=== PATIENT | male | born 1980 | race Caucasian/White ===

== ENCOUNTER 2022-02-04 14:54 | Inpatient (IN) | payer OTHER ==
[~2022-02-04] VITALS: Ht 180.3 cm; Wt 114.0 kg
--- NOTE | 2022-02-04 14:54 | NUR ---
PT AMBUALTES TO TREATMENT ROOM FOR TRIAGE
--- NOTE | 2022-02-04 15:30 | NUR ---
Reassessment of patient completed. No distress noted.
[2022-02-04 16:02] LABS: HEMOGLOBIN 16.1 g/dl (14.0-18.0); IMMATURE GRANULOCYTES 0.1 % (0.0-5.0); MEAN CELL VOLUME 88.2 fL CALC (80.0-100.0); MEAN CORPUSCULAR HGB 28.4 pG CALC (26.0-32.0); MEAN CORPUSCULAR HGB CONC 32.2 g/dL CAL (32.0-36.0); NEUT# 5.37 thou/uL (1.82-7.42); RED BLOOD COUNT 5.67 mill/uL (4.70-6.10); RED CELL DISTRI WIDTH 14.2 % (11.5-15.5)
[2022-02-04 16:14] LABS: ALBUMIN 4.5 g/dL (3.2-5.0); ALKALINE PHOSPHATASE 74 u/l (38-126); ANION GAP 17 (6-22 (CALC)); BILIRUBIN, TOTAL 0.4 mg/dL (0.0-1.4); CARBON DIOXIDE 22 mmol/l (22-30); CHLORIDE 100 mmol/l (95-108); GFR FOR AFR.AMER. 9 ML/MIN (>=60 (CALC)); GFR OTHER RACES 7 ML/MIN (>=60 (CALC)); MAGNESIUM 2.7 mg/dL (1.6-2.3); POTASSIUM 4.2 mmol/l (3.5-5.1); SGOT/AST 17 u/l (17-59); SODIUM 135 mmol/l (137-146); TOTAL PROTEIN 8.3 g/dL (6.3-8.2)
[2022-02-04 16:25] LABS: MYOGLOBIN 75 ng/mL (0 - 121)
[2022-02-04 16:27] LABS: BUN 119 mg/dL (9-20); BUN/CREATININE RATIO 14 (12-20 (CALC)); CREATININE 8.4 mg/dL (0.7-1.3)
--- NOTE | 2022-02-04 16:30 | NUR ---
Reassessment of patient completed. No distress noted.
[2022-02-04 16:35] LABS: INTERNATIONAL NORMALIZED RATIO 0.9 RATIO (0.7-1.3); PROTHROMBIN TIME 9.7 SECONDS (9.0-12.5)
--- NOTE | 2022-02-04 17:30 | NUR ---
Reassessment of patient completed. No distress noted.
[2022-02-04] MEDS ORDERED: CARVEDILOL6.25 MG PO (18:25)
[2022-02-04] MEDS ORDERED: ACETAMINOP160 MG/5 M PO (18:26)
[2022-02-04] MEDS ORDERED: WELLBUTRIN XL300 MG PO (18:26)
[2022-02-04] MEDS ORDERED: TRAZODONE50 MG PO (18:27)
[2022-02-04] MEDS ORDERED: LIPITOR40 M1 PO (18:27)
--- NOTE | 2022-02-04 18:31 | NUR ---
REPORT CALLED TO ANGEL BATEMAN AT THIS TIME
--- NOTE | 2022-02-04 19:45 | NUR ---
ARRIVED TO ROOM 260 FROM ER ACCOMPAIED BY NURSE ON TELEMENTRY E01 DENIES PAIN OR DISCOMFORT. ORIENTED TO ROOM. AMBULATES TO BATHROOM WITHOUT ASSISTANCE NO SOB WITH ACTIVITY NOTED.
--- NOTE | 2022-02-04 19:45 | NUR ---
PT TRANSFERRED TO MED SURG.
[2022-02-04 19:49] VITALS: BP 91/41
--- NOTE | 2022-02-04 22:20 | NUR ---
VOIDED 400 ML CLEAR YELLOW URINE. SPECIMEN COLLECTED ORDERED TO BE SENT TO LAB FOR ANALYSIS. PATIENT LYING IN BED WITHOUT DISTRESS. RESPIRATIONS EVEN AND UNLABORED.
[2022-02-04 23:41] LABS: URINE BILIRUBIN - DIPSTICK NEGATIVE (NEGATIVE); URINE BLOOD DIPSTICK NEGATIVE (NEGATIVE); URINE COLOR YELLOW; URINE GLUCOSE - DIPSTICK NEGATIVE (NEGATIVE); URINE KETONE NEGATIVE (NEGATIVE); URINE LEUK ESTERASE NEGATIVE (NEGATIVE); URINE PROTEIN - DIPSTICK NEGATIVE (NEG-TRACE); URINE SPECIFIC GRAVITY 1.015; URINE UROBILINOGEN - DIPSTICK 0.2 E.U./dL (0.2)
[2022-02-04 23:46] LABS: URINE NITRITE - DIPSTICK NEGATIVE (Negative)
--- NOTE | 2022-02-05 02:59 | NUR ---
RESTING QUIETLY IN BED NO ACUTE DISTRESS NOTED. POSTURE RELAXED RESPIRATIONS EVEN AND UNLABORED.
[2022-02-05 04:34] VITALS: BP 133/58
[2022-02-05 06:00] LABS: ALBUMIN 3.6 g/dL (3.2-5.0); POTASSIUM 4.3 mmol/l (3.5-5.1)
[2022-02-05 06:45] VITALS: BP 98/59
--- NOTE | 2022-02-05 08:00 | NUR ---
GOT REPORT FROM PACKAGING SUPERVISOR NURSE. PATIENT ASSESSED. AOX4. NO COMPLAINTS AT THIS TIME. NO CONCERNS OR QUESTIONS AT THIS TIME. CALL LIGHT AND BEDSIDE TABLE WITH IN REACH AND ADVISED PATIENT TO CALL IF HE NEEDED ANYTHING. PATIENT VEBERALIZED UNDERSTANDING.
[2022-02-05] MEDS ORDERED: TRAZODONE100 MG PO (09:30)
[2022-02-05] MEDS ORDERED: LISINOPRIL40 MG PO (10:56)
[2022-02-05 15:50] VITALS: BP 121/62
[2022-02-05 18:57] VITALS: BP 137/67
--- NOTE | 2022-02-05 19:30 | NUR ---
PATIENT LYING IN BED RELAXED POSTURE ALERT AND ORIENTED X3 WATCHING TV. DENIES PAIN OR DISCOMFORT RESPIRATIONS EVEN AND UNLABORED. WARM BLANKET PROVIDED FOR COMFORT. PLAN OF CARE REVIEWED WITH PATIENT.
--- NOTE | 2022-02-06 | NUR ---
RESTING QUIETLY IN BED LEFT-SIDE POSITION. EYES CLOSE RESPIRATIONS EVEN AND UNLABOREDITAL SIGNS STABLE WILL CONTINUE TO MONITOR
[2022-02-06 00:31] VITALS: BP 137/55
[2022-02-06 03:51] VITALS: BP 133/56
--- NOTE | 2022-02-06 04:11 | NUR ---
LYING IN BED WITH EYES CLOSED RELAXED POSTURE NO ACUTE DISTRESS NOTED.
[2022-02-06 05:55] LABS: ANION GAP 10 (6-22 (CALC)); BUN 50 mg/dL (9-20); BUN/CREATININE RATIO 36 (12-20 (CALC)); CARBON DIOXIDE 26 mmol/l (22-30); CHLORIDE 107 mmol/l (95-108); CREATININE 1.4 mg/dL (0.7-1.3); GFR FOR AFR.AMER. > 60 ML/MIN (>=60 (CALC)); GFR OTHER RACES 56 ML/MIN (>=60 (CALC)); MAGNESIUM 1.5 mg/dL (1.6-2.3); POTASSIUM 4.3 mmol/l (3.5-5.1); SODIUM 139 mmol/l (137-146)
[2022-02-06 06:38] VITALS: BP 127/50
--- NOTE | 2022-02-06 07:33 | NUR ---
PT RESTING IN SEMI FOWLERS POSITION. RESPIRATIONS EVEN AND UNLABORED. LUNG SOUNDS CLEAR. HEART RHYTHM NORMAL WITH TELE IN PLACE. BOWEL SOUNDS ACTIVE.#20G LAC INFUSING WITH IVF PER ORDER, SITE PATENT. SKIN INTACT. PT DNEIES OF ANY ADDITIONAL NEEDS AT THIS TIME. ALL [facility]AF[facility] PRECAUTIONS ARE IN PLACE WITH CALL LIGHT IN REACH
--- NOTE | 2022-02-06 10:03 | NUR ---
patient on dialysis treatment. Accessed fistula with 15 g needles x 1 attempt, patient tolerated without incident. Blood lines secured and visable. B/P wnl, patient denies c/o pain or discomfort at present. Heart regular, positive pulses, cap refil prompt, no edema noted. Lungs CTA, no respiratory distress noted, respirations easy non labored, skin warm dry intact. BM yesterday normal for patient per patient. To remove 1200 mls due to patient feeling badly if too much fluid removed.. Start weight 85.8 kg. Start time 8:43 B/P 157/79 Pulse 74 Resp 18 Temp 98.1 retake. No issues noted at present
--- NOTE | 2022-02-06 11:30 | NUR ---
PT EDUCATED ON DC INSTRUCTIONS. PT VERBALIZED UNDERSTANDING. IV REMOVED WITH CATH INTACT. TELE REMOVED, ER INFORMED. TRANSPORTATION CALLED
--- NOTE | 2022-02-06 12:15 | NUR ---
Discharge instructions given. Patient verbalizes understanding of same. Discharged in stable condition via Wheelchair to Home with staff. All belongings sent with pt.
== END 2022-02-06 12:16 | disposition home or self-care (01) | DRG 684 ==
LOC: ED 14:54 → ED-I 17:35 → ED 17:54 → MS2 17:55
PROVIDERS: Nurse Practitioner; ADMIT Internal Medicine; ATTEND Internal Medicine
DX: N17.9 Acute kidney failure, unspecified (principal); E86.0 Dehydration; I95.9 Hypotension, unspecified; I11.0 Hypertensive heart disease with heart failure; I50.9 Heart failure, unspecified; E78.5 Hyperlipidemia, unspecified; F32.A Depression, unspecified; F17.210 Nicotine dependence, cigarettes, uncomplicated; Z20.822 Contact with and (suspected) exposure to COVID-19

== ENCOUNTER 2022-03-16 15:44 | Emergency (ER) | payer OTHER ==
[~2022-03-16] VITALS: Ht 180.3 cm; Wt 109.0 kg
[2022-03-16] VITALS (8 sets, daily range): BP systolic 88–109; BP diastolic 47–74
[~2022-03-16 15:44] MED LIST: ACETAMINOP160 MG/5 M PO; CARVEDILOL6.25 MG PO; LIPITOR40 M1 PO; LISINOPRIL40 MG PO; TRAZODONE100 MG PO; TRAZODONE50 MG PO; WELLBUTRIN XL300 MG PO
[2022-03-16] MEDS ORDERED: LISINOPRIL10 MG PO (16:40)
[2022-03-16] MEDS ORDERED: CARVEDILOL6.25 MG PO (16:40)
[2022-03-16 16:45] LABS: HEMATOCRIT 46.5 % (39.0-50.0); IMMATURE GRANULOCYTES 0.1 % (0.0-5.0); MEAN CELL VOLUME 88.4 fL CALC (80.0-100.0); MEAN CORPUSCULAR HGB 28.5 pG CALC (26.0-32.0); MEAN CORPUSCULAR HGB CONC 32.3 g/dL CAL (32.0-36.0); NEUT# 4.9 thou/uL (1.82-7.42); RED BLOOD COUNT 5.26 mill/uL (4.70-6.10)
[2022-03-16 17:02] LABS: ALBUMIN 4.2 g/dL (3.2-5.0); POTASSIUM 3.9 mmol/l (3.5-5.1); TOTAL PROTEIN 7.9 g/dL (6.3-8.2)
[2022-03-16 17:03] LABS: BILIRUBIN, TOTAL 0.6 mg/dL (0.0-1.4); CREATININE 4.7 mg/dL (0.7-1.3)
== END 2022-03-16 18:37 | disposition home or self-care (01) | DRG 605 ==
LOC: ED 15:44
PROVIDERS: Family Medicine
DX: S00.83XA Contusion of other part of head, initial encounter (principal); I13.0 Hypertensive heart and chronic kidney disease with heart failure and stage 1 through stage 4 chronic kidney disease, or unspecified chronic kidney disease; N18.9 Chronic kidney disease, unspecified; I50.9 Heart failure, unspecified; W19.XXXA Unspecified fall, initial encounter; Y92.009 Unspecified place in unspecified non-institutional (private) residence as the place of occurrence of the external cause

== ENCOUNTER 2023-08-10 11:47 | Emergency (ER) | payer OTHER ==
[~2023-08-10] VITALS: Ht 180.3 cm; Wt 81.6 kg
[~2023-08-10 11:47] MED LIST changes: +LISINOPRIL10 MG PO
[2023-08-10 12:13] LABS: BASO% 0.3 % (0-3); EOS% 1.8 % (0-8); HEMATOCRIT 44.3 % (39.0-50.0); IMMATURE GRANULOCYTES 0.5 % (0.0-5.0); LYMPH% 14.9 % (15-41); MEAN CELL VOLUME 90.6 fL CALC (80.0-100.0); MEAN CORPUSCULAR HGB 28.6 pG CALC (26.0-32.0); MEAN CORPUSCULAR HGB CONC 31.6 g/dL CAL (32.0-36.0); MONO% 7.3 % (2-13); NEUT# 5.91 thou/uL (1.82-7.42); NEUT% 75.2 % (42-76); RED BLOOD COUNT 4.89 mill/uL (4.70-6.10); RED CELL DISTRI WIDTH 12.8 % (11.5-15.5)
[2023-08-10 12:27] VITALS: BP 108/69
[2023-08-10 12:30] VITALS: BP 105/66
[2023-08-10 12:52] LABS: ALBUMIN 3.7 g/dL (3.2-5.0); BILIRUBIN, TOTAL 0.6 mg/dL (0.2-1.3); CREATININE 1.7 mg/dL (0.7-1.3); POTASSIUM 4.5 mmol/l (3.5-5.1); TOTAL PROTEIN 8.2 g/dL (6.3-8.2)
[2023-08-10 13:00] VITALS: BP 96/56
[2023-08-10] MEDS ORDERED: VIBRAMYCIN100 M2 PO (13:02)
[2023-08-10] MEDS ORDERED: PAXLOVID PO (13:02)
[2023-08-10] MEDS ORDERED: TAM75CAP PO (13:02)
[2023-08-10 14:09] VITALS: BP 96/56
== END 2023-08-10 14:10 | disposition home or self-care (01) | DRG 178 ==
LOC: ED 11:47
PROVIDERS: Family Medicine
DX: U07.1 COVID-19 (principal); L02.31 Cutaneous abscess of buttock; J10.1 Influenza due to other identified influenza virus with other respiratory manifestations; I11.0 Hypertensive heart disease with heart failure; I50.9 Heart failure, unspecified; Z72.0 Tobacco use